=== PATIENT | female | born 1965 | race Caucasian/White ===

== ENCOUNTER 2016-03-30 21:29 | Emergency (ER) | payer OTHER ==
[2016-03-30 21:36] VITALS: BP 115/76; PULSE 77; TEMP 98; BMI 39.3
[2016-03-31 00:07] LABS: URINE APPEARANCE SLCLOUDY; URINE BILIRUBIN NEGATIVE (NEGATIVE); URINE BLOOD NEGATIVE (NEGATIVE); URINE COLOR AMBER; URINE GLUCOSE (UA) NEGATIVE (NEGATIVE); URINE KETONE 2+ (NEGATIVE); URINE LEUK ESTERASE NEGATIVE (NEGATIVE); URINE NITRITE NEGATIVE (NEGATIVE); URINE PROTEIN 1+ (NEGATIVE); URINE UROBILINOGEN 4.0 E.U/dl E.U./dl (0.2-1.0)
[2016-03-31 00:21] LABS: URINE BACTERIA RARE /hpf (NONE SEEN); URINE HYALINE CAST 1 /lpf; URINE MUCUS MANY; URINE RBC 4 /hpf (0-3); URINE WBC 6 /hpf (3-5)
--- NOTE | 2016-03-31 00:32 | PDOC ---
Suture Removal/Wound Check HPI - History of Present Illness Chief Complaint: Wound Infection Stated Complaint: INFECTED WOUND/LIGHTHEADED Time Seen by Provider: 03/30/16 23:13 History Source: Yes: Patient Treated at: [facility] ED - Previous ED Treatment Type of procedure performed on last visit: Yes: I&D of Abscess Past History - Travel Traveled outside of the country in the last 30 days: No Close contact w/someone who was outside of country & ill: No - Past Medical History Allergies/Adverse Reactions: Allergies Penicillins Allergy (Mild, Verified 03/30/16 21:34) Rash shellfish derived Allergy (Mild, Verified 03/30/16 21:34) Nausea Home Medications: Ambulatory Orders NK [No Known Home Medication] 03/30/16 - Immunization History Immunizations Up to Date: No - Social History Smoking Status: Never smoked Number of Ciarettes Per Day: 0 Suture Removal/Wound Check PE - Physical Exam Comments: 03/31/16 04:27 GENERAL: Well developed, well nourished. Awake and alert. No acute distress. HEENT: Normocephalic, atraumatic. PERRLA, EOMI. No conjunctival pallor. Sclera are non- icteric. Moist mucous membranes. Oropharynx is clear. NECK: Supple. Full ROM. No JVD. Carotid pulses 2+ and symmetric, without bruits. No thyromegaly. No lymphadenopathy. CARDIOVASCULAR: Regular rate and rhythm. No murmurs, rubs, or gallops. Distal pulses are 2+ and symmetric. PULMONARY: No evidence of respiratory distress. Lungs clear to auscultation bilaterally. No wheezing, rales or rhonchi. ABDOMINAL: Right mid abd; 3cm horizontal wound dehiscence with purulent d/c with surrounding erythema without lymphangitis +tender on palp; packing intact wtih copious purulent, malodorous, drainage Soft. Non-distended. No rebound or guarding. No organomegaly. Normoactive bowel sounds. MUSCULOSKELETAL Normal range of motion at all joints. No bony deformities or tenderness. No CVA tenderness. EXTREMITIES: No cyanosis. No clubbing. No edema. No calf tenderness. SKIN: Warm and dry. Normal capillary refill. No rashes. No jaundice. NEUROLOGICAL: Alert, awake, appropriate. Cranial nerves 2-12 intact. No deficits to light touch and temperature in face, upper extremities and lower extremities. No motor deficits in the in face, upper extremities and lower extremities. Normoreflexic in the upper and lower extremities. Normal speech. Toes are down- going bilaterally. Gait is normal without ataxia. PSYCHIATRIC: Cooperative. Good eye contact. Appropriate mood and affect. 03/31/16 04:31 *Review of Systems - Review of Systems Comments:: 03/31/16 04:30 CONSTITUTIONAL: Absent: fever, chills, diaphoresis, generalized weakness, malaise, loss of appetite HEENT: Absent: rhinorrhea, nasal congestion, throat pain, throat swelling, difficulty swallowing, mouth swelling, ear pain, eye pain, visual Changes CARDIOVASCULAR: Absent: chest pain, loss of consciousness, palpitations, irregular heart rate, peripheral edema RESPIRATORY: Absent: cough, shortness of breath, dyspnea with exertion, orthopnea, wheezing, stridor, hemoptysis GASTROINTESTINAL: abd skin drainage/pain Absent: abdominal pain, abdominal distension, nausea, vomiting, diarrhea, constipation, melena, hematochezia GENITOURINARY: Absent: dysuria, frequency, urgency, hesitancy, hematuria, flank pain, genital pain MUSCULOSKELETAL: Absent: myalgia, arthralgia, joint swelling SKIN: Absent: rash, itching, pallor HEMATOLOGIC/IMMUNOLOGIC: Absent: easy bleeding, easy bruising, lymphadenopathy, frequent infections ENDOCRINE: Absent: unexplained weight gain, unexplained weight loss, heat intolerance, cold intolerance NEUROLOGIC: Absent: headache, focal weakness or paresthesias, dizziness, unsteady gait, seizure, mental status changes, bladder or bowel incontinence PSYCHIATRIC: Absent: anxiety, depression, suicidal or homicidal ideation, hallucinations. ED Treatment Course - LABORATORY CBC & Chemistry Diagram: 03/31/16 00:10 03/31/16 01:27 - ADDITIONAL ORDERS Additional order review: Laboratory Results 03/30/16 23:54 Urine Color Kasia Urine Appearance Slcloudy Urine pH 5.0 Ur Specific [place] 1.026 Urine Protein 1+ H Urine Glucose (UA) Negative Urine Ketones 2+ H Urine Blood Negative Urine Nitrite Negative Urine Bilirubin Negative Urine Urobilinogen 4.0 e.u/dl H Ur Leukocyte Esterase Negative Urine RBC 4 Urine WBC 6 Ur Epithelial Cells Rare Urine Bacteria Rare Hyaline Casts 1 Urine Mucus Many Urine HCG, Qual Negative Progress Note - Progress Note Progress Note: 51-year-old female presents to the emergency department complaining of drainage to a laparoscopic gastric sleeve port which was done on March 05, [address] Gilmore. Patient states shortly after her surgery, she felt discomfort to that one trochar port on her right mid/lateral abd. She had a follow-up appointment with her surgeon yesterday where her incision was packed with packing. Pt was informed to change the packing daily but this evening she noticed redness surrounding the incision w/o fever, n/v, cp,sob,abd pain, urinary symptoms. *DC/Admit/Observation/Transfer Diagnosis at time of Disposition: Wound cellulitis Wound dehiscence Qualifiers: Encounter type: initial encounter Qualified Code(s): T81.31XA - Disruption of external operation (surgical) wound, not elsewhere classified, initial encounter - Discharge Dispostion Condition at time of disposition: Improved - Referrals Referrals: Boris Ramírez [Primary Care Provider] - Abraham Jaquez MD [Staff Physician] - - Patient Instructions Additional Instructions: Clindamycin 300mg take 1 tablet three times a day for 10 days Follow up with Dr. Gilmore on Saturday Return to the ER for severe/persistent or worsening symptoms of red streaks.
[2016-03-31] MEDS ORDERED: CLINDAMYCIN 900 MG PREMIX IVPB 50 ML IVPB ONE ×2 (00:34→00:43)
[2016-03-31 00:49] LABS: BASOPHIL 1.2 % (0-2.0); EOSINOPHIL 0.9 % (0-4.5); MCH 26.1 pg (25.7-33.7); MCHC 32.1 g/dl (32.0-36.0); MEAN CELL VOLUME 81.5 fl (80-96); MEAN PLT VOLUME 11.2 fl (7.5-11.1); NEUTROPHILS 63.9 % (42.8-82.8); PLATELET COUNT 251 K/MM3 (134-434); RDW 14.8 % (11.6-15.6)
[2016-03-31] MEDS ORDERED: ONDANSETRON 4 MG/2 ML VIAL IVPUSH ONE (00:55)
[2016-03-31] MEDS ORDERED: ONDANSETRON 4 MG/2 ML VIAL ONE (00:57)
[2016-03-31 02:06] LABS: ALBUMIN 3.4 g/dl (3.4-5.0); ALK PHOS 63 U/L (45-117); ANION GAP 12 (8-16); CALCIUM 8.6 mg/dL (8.5-10.1); CO2 27 mmol/L (21-32); CREATININE 0.8 mg/dL (0.55-1.02); GLUCOSE,RANDOM 93 mg/dL (74-106); SGOT/AST 9 U/L (15-37); SGPT/ALT 20 U/L (12-78)
[2016-03-31] MEDS ORDERED: POTASSIUM CHLORIDE TABS 20 MEQ TABLET.ER (FP) PO ONE ×2 (03:18→03:19)
--- NOTE | 2016-04-04 21:37 | PDOC ---
Patient Follow-up (Call Back) - Post ED Follow - Up Condition at time of discharge: Improved Disposition at time of original discharge: HOME Reason for Call Back: Abnwl. Microbiology (pt.'s wound rt. abdominal wound culture + for morganella morganii, enerobacteraial aerogenes, lactose fermenting neg bacilli, staph aureus resistant to clindamycin, pt. told to discontinue, will order levaquin 750 mg daily for 10 days called pt. to let her know, sent to her pharmacy she has follow up tomorrow with her MD bariatric surgeon)
== END 2016-03-31 05:52 | disposition home or self-care (01) ==
LOC: JER 21:29
PROC: 3E03329 Introduction of Other Anti-infective into Peripheral Vein, Percutaneous Approach (ICD-10-PCS; principal; 2016-03-30)
PROC: 3E033GC Introduction of Other Therapeutic Substance into Peripheral Vein, Percutaneous Approach (ICD-10-PCS; 2016-03-30)
DX: K95.81 Infection due to other bariatric procedure (principal); T81.31XA Disruption of external operation (surgical) wound, not elsewhere classified, initial encounter; L03.311 Cellulitis of abdominal wall; Y84.8 Other medical procedures as the cause of abnormal reaction of the patient, or of later complication, without mention of misadventure at the time of the procedure
CPT/HCPCS: 36415; 80053; 81003; 81015; 84703; 85025; 87070; 87186; 87205; 96365; 96375; 99282-25

== ENCOUNTER 2021-11-18 15:50 | Emergency (ER) | payer OTHER ==
[2021-11-18 16:06] VITALS: BP 125/76; PULSE 80; RESP 16; TEMP 98.5; BMI 25.0
[2021-11-18] MEDS ORDERED: SODIUM CHLORIDE 1,000 ML IV STA (16:34)
[2021-11-18] MEDS ORDERED: KETOROLAC TROMETHAMINE 30 MG/1 ML VIAL IVPUSH ONE (16:34)
[2021-11-18] MEDS ORDERED: KETOROLAC TROMETHAMINE 30 MG/1 ML VIAL ONE (16:42)
[2021-11-18 17:09] LABS: EPI CELLS 12 /uL (0-25.1); HYALINE CASTS 2 /uL (0-3.1); URINE APPEARANCE TURBID; URINE BACTERIA 16 /uL (0-1359); URINE BILIRUBIN NEGATIVE (NEGATIVE); URINE COLOR RED; URINE GLUCOSE (UA) NEGATIVE (NEGATIVE); URINE KETONE NEGATIVE (NEGATIVE); URINE LEUK ESTERASE 2+ (NEGATIVE); URINE NITRITE NEGATIVE (NEGATIVE); URINE PROTEIN 2+ (NEGATIVE); URINE RBC 24207 /uL (0-23.9); URINE UROBILINOGEN 0.2 mg/dL (0.2-1.0); URINE WBC 69 /uL (0-25.8)
[2021-11-18 17:32] LABS: BASO % 1.5 % (0-2.0); EOS % 2.1 % (0-4.5); HEMATOCRIT 37.5 % (32.4-45.2); HEMOGLOBIN 12.4 GM/dL (10.7-15.3); LYMPH % 29.9 % (8-40); MCH 27.1 pg (25.7-33.7); MEAN PLT VOLUME 9.9 fl (7.5-11.1); MONO % 6.4 % (3.8-10.2); NEUT % 60.1 % (42.8-82.8); PLATELET COUNT 227 10^3/uL (134-434); RBC 4.57 M/mm3 (3.60-5.2); RDW 13.5 % (11.6-15.6); WHITE BLOOD COUNT 5.9 K/mm3 (4.0-10.0)
[2021-11-18 17:50] LABS: CALCIUM 8.8 mg/dL (8.5-10.1)
[2021-11-18 17:51] LABS: ALBUMIN 3.7 g/dl (3.4-5.0); BLOOD UREA NITROGEN 13.3 mg/dL (7-18)
[2021-11-18 17:53] LABS: CREATININE 0.8 mg/dL (0.55-1.3)
[2021-11-18 17:55] LABS: BILIRUBIN,TOTAL 0.3 mg/dL (0.2-1); TOT PROT 6.5 g/dl (6.4-8.2)
[2021-11-18] MEDS ORDERED: TAMSULOSIN HCL 0.4 MG CAP PO ONE (18:52)
[2021-11-18] MEDS ORDERED: TAMSULOSIN HCL 0.4 MG CAP ONE (18:54)
== END 2021-11-18 18:57 | disposition home or self-care (01) ==
LOC: JERFT 15:50
PROC: 3E0333Z Introduction of Anti-inflammatory into Peripheral Vein, Percutaneous Approach (ICD-10-PCS; principal; 2021-11-18)
PROC: 3E0337Z Introduction of Electrolytic and Water Balance Substance into Peripheral Vein, Percutaneous Approach (ICD-10-PCS; 2021-11-18)
DX: N20.0 Calculus of kidney (principal)
CPT/HCPCS: 36415; 74176-TC; 80053; 81003; 85025; 87086; 87186; 99284-25

== ENCOUNTER 2021-11-24 08:30 | Day surgery (SDC) | payer OTHER ==
[2021-11-24] MEDS ORDERED: morphine CARPU-JECT 2 MG/1 ML DISP.SYRIN IVPUSH ONE (09:40)
[2021-11-24] MEDS ORDERED: ONDANSETRON 4 MG/2 ML VIAL IVPUSH ONE (09:40)
[2021-11-24] MEDS ORDERED: KETOROLAC TROMETHAMINE 30 MG/1 ML VIAL IVPUSH ONE (09:40)
[2021-11-24] MEDS ORDERED: KETOROLAC TROMETHAMINE 30 MG/1 ML VIAL ONE (09:43)
[2021-11-24] MEDS ORDERED: ONDANSETRON 4 MG/2 ML VIAL ONE (09:43)
[2021-11-24] MEDS ORDERED: SODIUM CHLORIDE 0.9% 500 ML INFUS.BAG IV ONE (09:53)
[2021-11-24] MEDS ORDERED: CEFTRIAXONE 1,000 MG in DEXTROSE 5%-WATER - 50 ML IVPB ONE (09:53)
[2021-11-24 10:11] LABS: BASO % 0.6 % (0-2.0); EOS % 2.5 % (0-4.5); HEMATOCRIT 40.5 % (32.4-45.2); HEMOGLOBIN 13.3 GM/dL (10.7-15.3); LYMPH % 24.8 % (8-40); MCHC 32.8 g/dl (32.0-36.0); MEAN CELL VOLUME 82.1 fl (80-96); MEAN PLT VOLUME 9.8 fl (7.5-11.1); MONO % 8.1 % (3.8-10.2); PLATELET COUNT 245 10^3/uL (134-434); RBC 4.93 M/mm3 (3.60-5.2); WHITE BLOOD COUNT 4.5 K/mm3 (4.0-10.0)
[2021-11-24 10:18] LABS: INR 0.97 (0.83-1.09); PROTHROMBIN TIME (PATIENT) 11.2 SEC (9.7-13.0)
[2021-11-24 10:21] LABS: EPI CELLS 11 /uL (0-25.1); HYALINE CASTS 0 /uL (0-3.1); PH,URINE 6.5 (5.0-8.0); URINE APPEARANCE CLEAR; URINE BACTERIA 179 /uL (0-1359); URINE BILIRUBIN NEGATIVE (NEGATIVE); URINE COLOR YELLOW; URINE GLUCOSE (UA) NEGATIVE (NEGATIVE); URINE KETONE NEGATIVE (NEGATIVE); URINE LEUK ESTERASE TRACE (NEGATIVE); URINE NITRITE NEGATIVE (NEGATIVE); URINE PROTEIN NEGATIVE (NEGATIVE); URINE RBC 586 /uL (0-23.9); URINE WBC 16 /uL (0-25.8)
[2021-11-24] MEDS ORDERED: CEFTRIAXONE 1 GM/50 ML BAG ONE (10:27)
[2021-11-24 10:28] LABS: BLOOD UREA NITROGEN 9.4 mg/dL (7-18); CALCIUM 9.4 mg/dL (8.5-10.1)
[2021-11-24 10:30] LABS: ALBUMIN 3.8 g/dl (3.4-5.0)
[2021-11-24 10:32] LABS: CREATININE 0.9 mg/dL (0.55-1.3)
[2021-11-24 10:33] LABS: BILIRUBIN,TOTAL 0.6 mg/dL (0.2-1); TOT PROT 7.3 g/dl (6.4-8.2)
[2021-11-24] MEDS ORDERED: TAMSULOSIN HCL 0.4 MG CAP PO ONE (11:36)
[2021-11-24] MEDS ORDERED: SODIUM CHLORIDE 1,000 ML IV SCH ×2 (11:45→19:05)
[2021-11-24] MEDS ORDERED: TAMSULOSIN HCL 0.4 MG CAP ONE (12:21)
[2021-11-24] MEDS ORDERED: ONDANSETRON 4 MG/2 ML VIAL IVPUSH PRN ×2 (14:31→19:05)
[2021-11-24] MEDS ORDERED: PROMETHAZINE HCL 25 MG/1 ML VIAL IVPUSH PRN ×2 (14:31→19:05)
[2021-11-24] MEDS ORDERED: LACTATED RINGERS SOLUTION 1,000 ML IV SCH (14:45)
[2021-11-24] MEDS ORDERED: MIDAZOLAM HCL 2 MG/2 ML SINGLE DOSE VIAL ONE (18:03)
[2021-11-24] MEDS ORDERED: DEXAMETHASONE SOD PHOSPHATE 4 MG/1 ML VIAL ONE (18:42)
[2021-11-24 23:18] VITALS: RESP 18
[2021-11-25 09:18] LABS: EOS % 1.6 % (0-4.5); HEMOGLOBIN 12.7 GM/dL (10.7-15.3); LYMPH % 24.4 % (8-40); MCH 26.3 pg (25.7-33.7); MCHC 31.8 g/dl (32.0-36.0); MEAN CELL VOLUME 82.7 fl (80-96); MEAN PLT VOLUME 10.4 fl (7.5-11.1); MONO % 9.2 % (3.8-10.2); NEUT % 63.8 % (42.8-82.8); PLATELET COUNT 245 10^3/uL (134-434); RBC 4.84 M/mm3 (3.60-5.2); WHITE BLOOD COUNT 5.1 K/mm3 (4.0-10.0)
[2021-11-25 09:27] LABS: INR 0.97 (0.83-1.09); PROTHROMBIN TIME (PATIENT) 11.2 SEC (9.7-13.0)
[2021-11-25 09:49] LABS: BILIRUBIN,TOTAL 0.4 mg/dL (0.2-1)
[2021-11-25 09:53] LABS: BLOOD UREA NITROGEN 9.6 mg/dL (7-18)
[2021-11-25 09:54] LABS: ALBUMIN 3.5 g/dl (3.4-5.0); MAGNESIUM 2.3 mg/dL (1.8-2.4)
[2021-11-25 09:56] LABS: CREATININE 0.9 mg/dL (0.55-1.3); PHOSPHOROUS 4.1 mg/dL (2.5-4.9); TOT PROT 6.7 g/dl (6.4-8.2)
[2021-11-25] MEDS ORDERED: CEFTRIAXONE 1,000 GM in DEXTROSE 5%-WATER - 50 ML IVPB ONE (14:14)
[2021-11-25] MEDS ORDERED: CEFTRIAXONE 1 GM in DEXTROSE 5%-WATER - 50 ML IVPB ONE ×2 (14:17→14:19)
[2021-11-26 09:51] LABS: BASO % 1.1 % (0-2.0); EOS % 2.1 % (0-4.5); HEMATOCRIT 38.2 % (32.4-45.2); HEMOGLOBIN 12.6 GM/dL (10.7-15.3); LYMPH % 21.8 % (8-40); MCH 27.1 pg (25.7-33.7); MCHC 32.9 g/dl (32.0-36.0); MEAN CELL VOLUME 82.2 fl (80-96); MEAN PLT VOLUME 10.2 fl (7.5-11.1); MONO % 7.4 % (3.8-10.2); NEUT % 67.6 % (42.8-82.8); PLATELET COUNT 223 10^3/uL (134-434); RBC 4.65 M/mm3 (3.60-5.2); RDW 13.9 % (11.6-15.6); WHITE BLOOD COUNT 4.6 K/mm3 (4.0-10.0)
[2021-11-26 09:55] LABS: ALBUMIN 3.4 g/dl (3.4-5.0); BLOOD UREA NITROGEN 15.1 mg/dL (7-18); CALCIUM 8.9 mg/dL (8.5-10.1); MAGNESIUM 2.2 mg/dL (1.8-2.4)
[2021-11-26 09:58] LABS: CREATININE 0.8 mg/dL (0.55-1.3)
[2021-11-26 10:00] LABS: BILIRUBIN,TOTAL 0.7 mg/dL (0.2-1); TOT PROT 6.4 g/dl (6.4-8.2)
[2021-11-26] MEDS ORDERED: LORATADINE 10 MG TABLET PO SCH (10:30)
[2021-11-26] MEDS ORDERED: TAMSULOSIN HCL 0.4 MG CAP PO SCH (10:45)
[2021-11-26] MEDS ORDERED: CEFTRIAXONE 1 GM in DEXTROSE 5%-WATER - 50 ML IVPB SCH (11:00)
[2021-11-26 11:55] VITALS: BP 135/75; PULSE 72
[2021-11-26 15:37] VITALS: TEMP 98.8
== END 2021-11-26 15:47 | disposition home or self-care (01) ==
LOC: JER 08:30 → SUATTDRO 11:07 → JASUSAT 11:07 → J7W 20:18 → JASUSAT 11-26 15:47
PROVIDERS: ATTEND Nurse Practitioner Family
PROC: 0TC78ZZ Extirpation of Matter from Left Ureter, Via Natural or Artificial Opening Endoscopic (ICD-10-PCS; principal; 2021-11-24 17:30)
PROC: 0T768DZ Dilation of Right Ureter with Intraluminal Device, Via Natural or Artificial Opening Endoscopic (ICD-10-PCS; 2021-11-24 17:30)
PROC: BT1DYZZ Fluoroscopy of Right Kidney, Ureter and Bladder using Other Contrast (ICD-10-PCS; 2021-11-24 17:30)
DX: N13.2 Hydronephrosis with renal and ureteral calculous obstruction (principal)
CPT/HCPCS: 0241U-QW; 36415; 80053; 81003; 83735; 84100; 85025; 85610; 85730; 86850; 86900; 86901; 87086; 93005; 93010; 94760; 99285-25; C2617

== ENCOUNTER 2022-01-08 04:16 | Day surgery (SDC) | payer OTHER ==
[2022-01-04 14:04] VITALS: BMI 24.9
[2022-01-08 11:05] VITALS: RESP 18
[2022-01-08] MEDS ORDERED: cefTRIAXone SODIUM 1 GM VIAL ONE (15:29)
[2022-01-08] MEDS ORDERED: MIDAZOLAM HCL 2 MG/2 ML SINGLE DOSE VIAL ONE (15:34)
[2022-01-08] MEDS ORDERED: cefTRIAXone SODIUM 1 GM VIAL IVPB ONE ×3 (15:45→15:47)
[2022-01-08] MEDS ORDERED: LIDOCAINE HCL/PF 2% SDV 5ML VIAL ONE (15:49)
[2022-01-08] MEDS ORDERED: ONDANSETRON 4 MG/2 ML VIAL IM ONE (17:05)
[2022-01-08 18:19] VITALS: BP 130/74; PULSE 58; TEMP 98.1
== END 2022-01-08 18:10 | disposition home or self-care (01) ==
LOC: JASU-SURG 04:16
PROVIDERS: ATTEND Urology
PROC: 0TF3XZZ Fragmentation in Right Kidney Pelvis, External Approach (ICD-10-PCS; principal; 2022-01-08 13:30)
DX: N20.0 Calculus of kidney (principal)

== ENCOUNTER 2023-02-27 07:29 | Emergency (ER) | payer OTHER ==
[2023-02-27 07:43] VITALS: BMI 25.7
[2023-02-27] MEDS ORDERED: KETOROLAC TROMETHAMINE 30 MG/1 ML VIAL IVPUSH ONE (11:04)
[2023-02-27] MEDS ORDERED: KETOROLAC TROMETHAMINE 30 MG/1 ML VIAL ONE (11:07)
[2023-02-27 11:56] LABS: BASO % 1.9 % (0-2.0); EOS % 2.4 % (0-4.5); HEMATOCRIT 37.7 % (32.4-45.2); HEMOGLOBIN 12.2 GM/dL (10.7-15.3); LYMPH % 28.7 % (8-40); MCH 25.4 pg (25.7-33.7); MCHC 32.4 g/dl (32.0-36.0); MEAN CELL VOLUME 78.5 fl (80-96); MEAN PLT VOLUME 9.8 fl (7.5-11.1); MONO % 9.7 % (3.8-10.2); NEUT % 57.3 % (42.8-82.8); PLATELET COUNT 221 10^3/uL (134-434); RBC 4.81 M/mm3 (3.60-5.2); RDW 14.5 % (11.6-15.6); WHITE BLOOD COUNT 5.1 K/mm3 (4.0-10.0)
[2023-02-27 11:57] LABS: URINE APPEARANCE Error; URINE BILIRUBIN NEGATIVE (NEGATIVE); URINE COLOR YELLOW; URINE GLUCOSE (UA) NEGATIVE (NEGATIVE); URINE KETONE NEGATIVE (NEGATIVE); URINE LEUK ESTERASE NEGATIVE (NEGATIVE); URINE NITRITE NEGATIVE (NEGATIVE); URINE PROTEIN NEGATIVE (NEGATIVE); URINE UROBILINOGEN 0.2 mg/dL (0.2-1.0)
[2023-02-27 12:17] LABS: ALBUMIN 3.5 g/dl (3.4-5.0); CALCIUM 9.2 mg/dL (8.5-10.1)
[2023-02-27 12:18] LABS: BLOOD UREA NITROGEN 15.8 mg/dL (7-18)
[2023-02-27 12:20] LABS: CREATININE 0.7 mg/dL (0.55-1.3)
[2023-02-27 12:22] LABS: BILIRUBIN,TOTAL 0.4 mg/dL (0.2-1); TOT PROT 6.6 g/dl (6.4-8.2)
[2023-02-27 13:57] VITALS: BP 135/78; PULSE 62; RESP 16
[2023-02-27] MEDS ORDERED: ACETAMINOPHEN 325 MG TABLET (FP) PO ONE (14:42)
[2023-02-27] MEDS ORDERED: IBUPROFEN 600 MG TABLET (FP) PO ONE ×2 (14:42→14:58)
[2023-02-27] MEDS ORDERED: ACETAMINOPHEN 325 MG TABLET (FP) ONE (14:43)
== END 2023-02-27 15:01 | disposition home or self-care (01) ==
LOC: JER 07:29
PROC: 3E0333Z Introduction of Anti-inflammatory into Peripheral Vein, Percutaneous Approach (ICD-10-PCS; principal; 2023-02-27)
DX: S39.012A Strain of muscle, fascia and tendon of lower back, initial encounter (principal); M54.50 Low back pain, unspecified; X50.9XXA Other and unspecified overexertion or strenuous movements or postures, initial encounter; Z20.822 Contact with and (suspected) exposure to COVID-19
CPT/HCPCS: 0241U-QW; 36415; 74176-TC; 80053; 81003; 85025; 87086; 99284-25